=== PATIENT | male | born 1970 | race Caucasian/White ===

== ENCOUNTER 2018-08-18 11:55 | Outpatient (CLI) | payer SELFPAY | END 2018-08-18 11:56 | disposition critical access hospital (66) | LOC: EMS 11:55 | PROVIDERS: ATTEND Surgery | DX: R25.1 Tremor, unspecified (principal); R56.9 Unspecified convulsions; R11.2 Nausea with vomiting, unspecified | CPT/HCPCS: A0425; A0427 ==

== ENCOUNTER 2018-08-18 12:38 | Emergency (ER) | payer SELFPAY ==
[2018-08-18] MEDS ORDERED: PANTOPRAZOLE 40 MG VIAL IVP STA (12:56)
[2018-08-18] MEDS ORDERED: LORazepam 2 MG/ML VIAL IVP STA (12:56)
[2018-08-18] MEDS ORDERED: SODIUM CHLORIDE 0.9% 1,000 ML IV ONE (12:56)
[2018-08-18] MEDS ORDERED: chlordiazePOXIDE 25 MG CAPSULE PO STA (12:56)
[2018-08-18] MEDS ORDERED: ONDANSETRON 4 MG/2 ML VIAL IVP STA (12:56)
--- NOTE | 2018-08-18 13:00 | ED Physician Documentation ---
History of Present Illness - Stated complaint Stated Complaint: ETOH - Chief complaint Chief Complaint: General - History obtained from History obtained from: Patient - History of Present Illness Timing: Today Pain level max: 4 Pain level now: 4 Improved by: drinking etoh Worsened by: stopping drinking etoh - Additonal information Additional information: 48-year-old male who presents to the emergency department with alcohol withdrawal today. States last drink was 2 days ago. States he has gone through withdrawal before. Has been drinking a gallon of vodka a day for the past 10 days. States he was sober for a year prior to that. States that he thinks he may have had a seizure this morning. Is not having any hallucinations. Review of Systems Ten Systems: 10 systems reviewed and negative Constitutional: denies: Fever, Chills Nose: denies: Rhinorrhea / runny nose, Congestion Throat: denies: Sore throat Cardiac: denies: Chest pain / pressure Respiratory: denies: Cough GI: reports: Abdominal Pain (crampy), Nausea, Vomiting. denies: Diarrhea Skin: denies: Rash Musculoskeletal: denies: Neck pain, Back pain Neurologic: denies: Headache PD PAST MEDICAL HISTORY - Past Medical History Past Medical History: Yes Other Past Medical History: ETOH, splenic cyst - Past Surgical History Past Surgical History: Yes General: Splenectomy - Present Medications Home Medications: Ambulatory Orders Medication Instructions Recorded Confirmed Lorazepam [Ativan] 1 mg PO Q8H PRN #7 tablet 08/18/18 chlordiazePOXIDE [Librium] 25 - 50 mg PO Q6H PRN #30 capsule 08/18/18 - Allergies Allergies/Adverse Reactions: Allergies Allergy/AdvReac Type Severity Reaction Status Date / Time No Known Drug Allergies Allergy Verified 08/18/18 12:43 - Social History Does the pt smoke?: Yes Does the pt drink ETOH?: Yes ETOH Use: Liquor Does the pt have substance abuse?: No - Immunizations Immunizations are current?: Yes PD ED PE NORMAL - Vitals Vital signs reviewed: Yes - General General: Alert and oriented X 3, No acute distress, Well developed/nourished - HEENT HEENT: PERRL, Moist mucous membranes - Neck Neck: Supple, no meningeal sign - Cardiac Cardiac: Other (tachycardic) - Respiratory Respiratory: No respiratory distress, Clear bilaterally - Abdomen Abdomen: Soft, Non tender, Non distended - Derm Derm: Warm and dry, No rash - Extremities Extremities: No edema - Neuro Neuro: Alert and oriented X 3, electro mechanical designer 2-12 intact, No motor deficit, No sensory deficit - Psych Psych: Other (slightly tremulous) Results - Vitals Vitals: Vital Signs - 24 hr 08/18/18 08/18/18 08/18/18 12:39 13:07 14:07 Temperature 37 C Heart Rate 116 H 99 104 H Respiratory 18 24 18 Rate Blood Pressure 134/106 H 133/73 H 121/71 O2 Saturation 100 100 95 Oxygen O2 Source Room air - Labs Labs: Laboratory Tests 08/18/18 08/18/18 13:14 13:14 WBC 12.6 H RBC 5.13 Hgb 16.3 Hct 46.6 MCV 90.9 MCH 31.7 H MCHC 34.9 RDW 14.2 Plt Count 265 MPV 6.8 L Neut # (Auto) 9.7 H Lymph # (Auto) 2.1 [place] # (Auto) 0.7 Eos # (Auto) 0.0 Baso # (Auto) 0.1 Absolute Nucleated RBC 0.01 Nucleated RBC % 0.1 Sodium 132 L Potassium 3.1 L Chloride 94 L Carbon Dioxide 16 L Anion Gap 22.0 H BUN 14 Creatinine 0.9 Estimated GFR (MDRD) 90 Glucose 88 Calcium 8.4 L Total Bilirubin 1.7 H AST 62 H ALT 44 Alkaline Phosphatase 55 Total Protein 7.1 Albumin 4.3 Globulin 2.8 Albumin/Globulin Ratio 1.5 Lipase 26 Ethyl Alcohol 51.1 PD MEDICAL DECISION MAKING - ED course Complexity details: reviewed results, re-evaluated patient, considered differential, d/w patient, d/w [facility] [place] consultant ED course: Patient with alcohol withdrawal. Spoke with social work and he does not want inpatient detox or crisis detox. He will self refer in the morning. I will prescribe him a small amount of Librium and Ativan for home. We will have him follow-up closely with his doctor for further care. Patient has someone to stay with him at home. No hallucinations here. No seizures. Patient counseled regarding signs and symptoms for which I believe and urgent re-evaluation would be necessary. Patient with good understanding of and agreement to plan and is comfortable going home at this time This document was made in part using voice recognition software. While efforts are made to proofread this document, sound alike and grammatical errors may occur. Departure - Departure Disposition: 01 Home, Self Care Clinical Impression: Alcohol withdrawal Qualifiers: Complication of substance-induced condition: uncomplicated Qualified Code(s): F10.230 - Alcohol dependence with withdrawal, uncomplicated Condition: Stable Instructions: ED Withdrawal Alcohol Follow-Up: your,doctor in 3 days [Other] Prescriptions: chlordiazePOXIDE [Librium] 25 - 50 mg PO Q6H PRN #30 capsule PRN Reason: Alcohol Withdrawal Lorazepam [Ativan] 1 mg PO Q8H PRN #7 tablet PRN Reason: Alcohol Withdrawal Comments: You have declined inpatient treatment for alcohol withdrawal today. I still think it would be a good idea for you to follow-up as an outpatient and get herself into detox. Return if you worsen. Do not drink alcohol while taking the Ativan or Librium Discharge Date/Time: 08/18/18 14:21
[2018-08-18 13:20] LABS: BASOPHILS # (AUTO) 0.1 10^3/uL (0.0-0.1); EOSINOPHILS % (AUTO) 0.1 %; HGB - HEMOGLOBIN 16.3 g/dL (14.0-18.0); LYMPHOCYTES # (AUTO) 2.1 10^3/uL (1.5-3.5); LYMPHOCYTES % (AUTO) 16.8 %; MEAN CORPUSCULAR HEMOGLOBIN 31.7 pg (27.0-31.0); MEAN CORPUSCULAR HGB CONC 34.9 g/dL (32.0-36.0); MEAN CORPUSCULAR VOLUME 90.9 fL (80.0-94.0); MEAN PLATELET VOLUME 6.8 fL (7.4-11.4); MONOCYTES # (AUTO) 0.7 10^3/uL (0.0-1.0); MONOCYTES % (AUTO) 5.4 %; NEUTROPHILS # (AUTO) 9.7 10^3/uL (1.5-6.6); NEUTROPHILS % (AUTO) 76.7 %; PLT - PLATELET COUNT 265 10^3/uL (130-450); RED BLOOD COUNT 5.13 10^6/uL (4.70-6.10); RED CELL DISTRIBUTION WIDTH 14.2 % (12.0-15.0); WHITE BLOOD COUNT 12.6 x10^3/uL (4.8-10.8)
[2018-08-18 13:33] LABS: ALBUMIN 4.3 g/dL (3.2-5.5); ALBUMIN/GLOBULIN RATIO 1.5 (1.0-2.2); BILIRUBIN,TOTAL 1.7 mg/dL (0.2-1.0); CALCIUM 8.4 mg/dL (8.5-10.3); CREATININE 0.9 mg/dL (0.6-1.2); TOTAL PROTEIN 7.1 g/dL (6.7-8.2)
[2018-08-18 14:11] VITALS: BP 121/71
== END 2018-08-18 14:21 | disposition home or self-care (01) ==
LOC: ED 12:38
DX: F10.230 Alcohol dependence with withdrawal, uncomplicated (principal)
CPT/HCPCS: 36415; 80053; 80320; 83690; 85025; 96361; 96374; 96375; 99283; 99284; A9270; J2060

== ENCOUNTER 2019-07-12 14:54 | Outpatient (CLI) | payer SELFPAY | END 2019-07-12 14:55 | disposition critical access hospital (66) | LOC: EMS 14:54 | PROVIDERS: ATTEND Surgery | DX: R56.9 Unspecified convulsions (principal); R42 Dizziness and giddiness ==

== ENCOUNTER 2019-07-12 15:35 | Emergency (ER) | payer SELFPAY ==
--- NOTE | 2019-07-12 15:44 | ED Physician Documentation ---
PD HPI SEIZURE - Stated complaint Stated Complaint: SZ - Chief complaint Chief Complaint: Neuro - History obtained from History obtained from: Patient, EMS - History of Present Illness Timing - onset: Today (48yo gentleman quit drinking 2 days ago. He had been on a velásquez. He drinks around the clock. He had a seizure today. On the way and was treated with 5 mg of Versed and 100 mg this is the third time he is had a seizure, the other 2 were associated with alcohol withdrawal as well, the most recent seizure was 6 months ago. He was only sober for a few days then.) Review of Systems Ten Systems: 10 systems reviewed and negative Constitutional: reports: Fatigue. denies: Fever, Chills Cardiac: denies: Chest pain / pressure, Palpitations Respiratory: denies: Dyspnea PD PAST MEDICAL HISTORY - Past Surgical History Past Surgical History: Yes General: Splenectomy - Present Medications Home Medications: Ambulatory Orders Medication Instructions Recorded Confirmed Lorazepam [Ativan] 1 mg PO Q8H PRN #7 tablet 08/18/18 chlordiazePOXIDE [Librium] 25 - 50 mg PO Q6H PRN #30 capsule 08/18/18 chlordiazePOXIDE [Librium] 25 mg PO Q6H PRN #15 capsule 07/12/19 - Allergies Allergies/Adverse Reactions: Allergies Allergy/AdvReac Type Severity Reaction Status Date / Time No Known Drug Allergies Allergy Verified 08/18/18 12:43 - Social History Does the pt smoke?: Yes Does the pt drink ETOH?: Yes Does the pt have substance abuse?: No - Immunizations Immunizations are current?: Yes PD ED PE NORMAL - Vitals Vital signs reviewed: Yes - General General: Alert and oriented X 3 (Mildly tremulous, alert and oriented) - HEENT HEENT: PERRL, EOMI, Other (No icterus) - Neck Neck: Supple, no meningeal sign, No bony TTP - Cardiac Cardiac: RRR, No murmur - Respiratory Respiratory: No respiratory distress, Clear bilaterally - Abdomen Abdomen: Non tender - Derm Derm: No rash - Neuro Neuro: Alert and oriented X 3, Normal speech Results - Vitals Vitals: Vital Signs - 24 hr 07/12/19 15:37 Temperature 37 C Heart Rate 105 H Respiratory 18 Rate Blood Pressure 122/87 H O2 Saturation 98 Oxygen O2 Source Room air - Labs Labs: Laboratory Tests 07/12/19 07/12/19 07/12/19 15:45 15:45 15:45 WBC 7.8 RBC 4.81 Hgb 15.6 Hct 43.1 MCV 89.6 MCH 32.4 H MCHC 36.2 H RDW 13.8 Plt Count 158 MPV 10.0 Neut # (Auto) 6.1 Lymph # (Auto) 1.0 L [place] # (Auto) 0.6 Eos # (Auto) 0.0 Baso # (Auto) 0.0 Absolute Nucleated RBC 0.00 Nucleated RBC % 0.0 PT 12.1 INR 1.1 Sodium 136 Potassium 3.4 L Chloride 96 L Carbon Dioxide 23 Anion Gap 17.0 H BUN 8 Creatinine 0.9 Estimated GFR (MDRD) 90 Glucose 157 H Calcium 9.3 Total Bilirubin 1.4 H AST 102 H ALT 51 Alkaline Phosphatase 50 Total Protein 6.7 Albumin 4.1 Globulin 2.6 Albumin/Globulin Ratio 1.6 Lipase 61 H Ethyl Alcohol < 5.0 PD MEDICAL DECISION MAKING - ED course ED course: 48-year-old gentleman presents with alcohol withdrawal seizure. It was too late in the day for the public health social worker to talk to him. He was given crisis resources by me. And the option of inpatient treatment which he declined and would like to go home with a Librium prescription. Given the late hour on the weekend he was given 2 mg of Ativan to go for the evening. Departure - Departure Disposition: 01 Home, Self Care Clinical Impression: Seizure Alcohol withdrawal Qualifiers: Complication of substance-induced condition: uncomplicated Qualified Code(s): F10.230 - Alcohol dependence with withdrawal, uncomplicated Condition: Good Record reviewed to determine appropriate education?: Yes Instructions: ED Seizure Alcohol Withdrawal, ED Withdrawal Alcohol Prescriptions: chlordiazePOXIDE [Librium] 25 mg PO Q6H PRN #15 capsule PRN Reason: withdrawl
[2019-07-12 15:49] LABS: BASOPHILS % (AUTO) 0.5 %; EOSINOPHILS % (AUTO) 0.4 %; HGB - HEMOGLOBIN 15.6 g/dL (14.0-18.0); LYMPHOCYTES % (AUTO) 12.3 %; MEAN CORPUSCULAR HEMOGLOBIN 32.4 pg (27.0-31.0); MEAN CORPUSCULAR HGB CONC 36.2 g/dL (32.0-36.0); MEAN CORPUSCULAR VOLUME 89.6 fL (80.0-94.0); MONOCYTES # (AUTO) 0.6 10^3/uL (0.0-1.0); MONOCYTES % (AUTO) 7.8 %; NEUTROPHILS # (AUTO) 6.1 10^3/uL (1.5-6.6); NEUTROPHILS % (AUTO) 78.6 %; PLT - PLATELET COUNT 158 10^3/uL (130-450); RED BLOOD COUNT 4.81 10^6/uL (4.70-6.10); RED CELL DISTRIBUTION WIDTH 13.8 % (12.0-15.0); WHITE BLOOD COUNT 7.8 x10^3/uL (4.8-10.8)
[2019-07-12] MEDS: LORazepam 1 MG TABLET PO STA (15:53)
[2019-07-12 15:54] LABS: INR 1.1 (0.8-1.2); PT - PROTHROMBIN TIME 12.1 secs (9.9-12.6)
[2019-07-12 16:02] LABS: ALBUMIN 4.1 g/dL (3.2-5.5); ALBUMIN/GLOBULIN RATIO 1.6 (1.0-2.2); ALKALINE PHOSPHATASE 50 IU/L (42-121); ALT ALANINE AMINOTRANSFERASE 51 IU/L (10-60); AST ASPARTATE AMINOTRANSFERASE 102 IU/L (10-42); BILIRUBIN,TOTAL 1.4 mg/dL (0.2-1.0); BUN - BLOOD UREA NITROGEN 8 mg/dL (6-20); CALCIUM 9.3 mg/dL (8.5-10.3); CARBON DIOXIDE - CO2 23 mmol/L (21-32); CHLORIDE 96 mmol/L (101-111); CREATININE 0.9 mg/dL (0.6-1.2); GFR - MDRD 90 (>89); GLUCOSE 157 mg/dL (70-100); LIPASE 61 U/L (22-51); SODIUM 136 mmol/L (135-145); TOTAL PROTEIN 6.7 g/dL (6.7-8.2)
[2019-07-12] MEDS ORDERED: LORazepam 1 MG TABLET PO STA (17:02)
[2019-07-12 17:34] VITALS: BP 118/85
== END 2019-07-12 17:34 | disposition home or self-care (01) ==
LOC: EDUNIT# → ED 15:35
DX: R56.9 Unspecified convulsions (principal); F10.230 Alcohol dependence with withdrawal, uncomplicated
CPT/HCPCS: 36415; 80053; 80320; 83690; 85025; 85610; 99283; 99284; J8499

== ENCOUNTER 2019-09-21 08:44 | Emergency (ER) | payer SELFPAY ==
[2019-09-21] MEDS ORDERED: LORazepam 2 MG/ML VIAL IVP STA ×3 (09:32→11:29)
[2019-09-21] MEDS ORDERED: FOLIC ACID INJ 1 MG, THIAMINE INJ 100 MG, MAGNESIUM SULFATE 2 GM, MULTIVITAMIN 10 ML in... IV STA ×5 (09:33)
--- NOTE | 2019-09-21 09:34 | ED Physician Documentation ---
History of Present Illness - Stated complaint Stated Complaint: DETOXING - Chief complaint Chief Complaint: MHE - History obtained from History obtained from: Patient, Friend - History of Present Illness Timing: Today - Additonal information Additional information: 49-year-old alcoholic male who has had alcohol withdrawal seizure 7 times previously is withdrawing from alcohol and would like some assistance. He drinks heavily when he drinks and he has been drinking for the past 15 days straight 10-20 drinks per day. He discontinued use of alcohol yesterday morning he has been about 24 hours without alcohol. He is feeling like he is about ready to have a seizure his hands were cramped up and he feels poorly. PD PAST MEDICAL HISTORY - Past Surgical History Past Surgical History: Yes General: Splenectomy - Present Medications Home Medications: Ambulatory Orders Medication Instructions Recorded Confirmed Lorazepam [Ativan] 1 mg PO Q8H PRN #7 tablet 08/18/18 chlordiazePOXIDE [Librium] 25 - 50 mg PO Q6H PRN #30 capsule 08/18/18 chlordiazePOXIDE [Librium] 25 mg PO Q6H PRN #15 capsule 07/12/19 chlordiazePOXIDE [Librium] 25 - 50 mg PO Q6H PRN #30 capsule 09/21/19 - Allergies Allergies/Adverse Reactions: Allergies Allergy/AdvReac Type Severity Reaction Status Date / Time No Known Drug Allergies Allergy Verified 08/18/18 12:43 - Social History Does the pt smoke?: Yes Smoking Status: Current every day smoker Does the pt drink ETOH?: Yes Does the pt have substance abuse?: No - Immunizations Immunizations are current?: Yes PD ED PE NORMAL - Vitals Vital signs reviewed: Yes - General General: Alert and oriented X 3, Well developed/nourished, Other (The patient is in distress with carpal pedal spams and grunting respirations. He is able to converse but is distracted by the energy required by the carpal spasms. ) - HEENT HEENT: Atraumatic, PERRL, EOMI - Neck Neck: Supple, no meningeal sign, No bony TTP - Cardiac Cardiac: No murmur, Other (tachy to 110) - Respiratory Respiratory: No respiratory distress, Clear bilaterally - Abdomen Abdomen: Normal bowel sounds, Soft, Non tender, Non distended, No organomegaly - Back Back: No CVA TTP, No spinal TTP - Derm Derm: Normal color, Warm and dry, No rash - Extremities Extremities: No deformity, No edema - Neuro Neuro: Alert and oriented X 3, yeast tender 2-12 intact, No motor deficit, No sensory deficit, Normal speech Eye Opening: Spontaneous Motor: Obeys Commands Verbal: Oriented GCS Score: 15 - Psych Psych: Normal mood, Normal affect Results - Vitals Vitals: Vital Signs - 24 hr 09/21/19 09/21/19 09/21/19 09:00 09:23 10:15 Temperature 36.5 C Heart Rate 108 H 97 100 Respiratory 18 18 16 Rate Blood Pressure 152/99 H 144/86 H 142/99 H O2 Saturation 100 100 86 L 09/21/19 09/21/19 09/21/19 10:16 10:20 10:21 Temperature Heart Rate Respiratory Rate Blood Pressure O2 Saturation 96 89 L 95 Oxygen O2 Source Nasal cannula - Labs Labs: Laboratory Tests 09/21/19 09/21/19 09/21/19 09:05 09:05 09:05 WBC 11.0 H RBC 5.63 Hgb 17.9 Hct 50.5 MCV 89.7 MCH 31.8 H MCHC 35.4 RDW 14.1 Plt Count 310 MPV 8.8 Neut # (Auto) 5.1 Lymph # (Auto) 4.8 H [place] # (Auto) 0.9 Eos # (Auto) 0.1 Baso # (Auto) 0.1 Absolute Nucleated RBC 0.00 Nucleated RBC % 0.0 PT 10.7 INR 0.9 Sodium 140 Potassium 3.8 Chloride 99 L Carbon Dioxide 21 Anion Gap 20.0 H BUN 12 Creatinine 0.9 Estimated GFR (MDRD) 90 Glucose 104 H Calcium 8.9 Total Bilirubin 1.4 H AST 72 H ALT 44 Alkaline Phosphatase 47 Total Protein 7.6 Albumin 4.6 Globulin 3.0 Albumin/Globulin Ratio 1.5 Lipase 29 Ethyl Alcohol 204.7 PD MEDICAL DECISION MAKING - ED course Complexity details: reviewed old records, reviewed results, re-evaluated patient, considered differential, d/w patient, d/w family ED course: 49-year-old alcoholic male with alcohol withdrawal seizures comes into the emergency department today in the early stages of withdrawal very shaky and tachycardic and feeling like he might have a seizure with BA of 200. He is administered Ativan 2 mg intravenously and requires a second 2 mg intravenously. He has much improvement following that and he does talk to the social media developer he is not interested in going for inpatient detoxification which is what I have recommended to him. He states that previously the Librium has worked well for him and here in the emergency department we have given him a third dose of Ativan prior to discharge with a prescription for Librium. Departure - Departure Disposition: 01 Home, Self Care Clinical Impression: Alcohol withdrawal Qualifiers: Complication of substance-induced condition: with unspecified complication Qualified Code(s): F10.239 - Alcohol dependence with withdrawal, unspecified Condition: Stable Instructions: ED Withdrawal Alcohol, ED Seizure Alcohol Withdrawal Follow-Up: [facility] [Provider Group] Prescriptions: chlordiazePOXIDE [Librium] 25 - 50 mg PO Q6H PRN #30 capsule PRN Reason: withdrawal symptoms
[2019-09-21] MEDS ORDERED: DEXAMETHASONE 10 MG/ML VIAL IVP STA (09:46)
[2019-09-21 09:55] LABS: BASOPHILS # (AUTO) 0.1 10^3/uL (0.0-0.1); BASOPHILS % (AUTO) 1.2 %; EOSINOPHILS # (AUTO) 0.1 10^3/uL (0.0-0.7); EOSINOPHILS % (AUTO) 1.2 %; HGB - HEMOGLOBIN 17.9 g/dL (14.0-18.0); LYMPHOCYTES # (AUTO) 4.8 10^3/uL (1.5-3.5); LYMPHOCYTES % (AUTO) 43.5 %; MEAN CORPUSCULAR HEMOGLOBIN 31.8 pg (27.0-31.0); MEAN CORPUSCULAR HGB CONC 35.4 g/dL (32.0-36.0); MEAN CORPUSCULAR VOLUME 89.7 fL (80.0-94.0); MEAN PLATELET VOLUME 8.8 fL (7.4-11.4); MONOCYTES # (AUTO) 0.9 10^3/uL (0.0-1.0); MONOCYTES % (AUTO) 7.8 %; NEUTROPHILS # (AUTO) 5.1 10^3/uL (1.5-6.6); PLT - PLATELET COUNT 310 10^3/uL (130-450); RED BLOOD COUNT 5.63 10^6/uL (4.70-6.10); RED CELL DISTRIBUTION WIDTH 14.1 % (12.0-15.0)
[2019-09-21 10:09] LABS: ALBUMIN 4.6 g/dL (3.2-5.5); ALBUMIN/GLOBULIN RATIO 1.5 (1.0-2.2); BILIRUBIN,TOTAL 1.4 mg/dL (0.2-1.0); CALCIUM 8.9 mg/dL (8.5-10.3); CREATININE 0.9 mg/dL (0.6-1.2); TOTAL PROTEIN 7.6 g/dL (6.7-8.2)
[2019-09-21 10:11] LABS: INR 0.9 (0.8-1.2); PT - PROTHROMBIN TIME 10.7 secs (9.9-12.6)
[2019-09-21 11:46] VITALS: BP 142/98
== END 2019-09-21 11:45 | disposition home or self-care (01) ==
LOC: ED 08:44
DX: F10.239 Alcohol dependence with withdrawal, unspecified (principal); F17.200 Nicotine dependence, unspecified, uncomplicated
CPT/HCPCS: 36415; 80053; 80320; 83690; 85025; 85610; 96365; 96375; 96376; 99281; 99284; J2060; J3411

== ENCOUNTER 2019-12-22 12:47 | Emergency (ER) | payer SELFPAY ==
[2019-12-22] MEDS ORDERED: LORazepam 2 MG/ML VIAL IVP STA (13:08)
[2019-12-22] MEDS ORDERED: THIAMINE INJ 100 MG in SODIUM CHLORIDE 0.9% 50 ML IV STA (13:08)
[2019-12-22] MEDS ORDERED: SODIUM CHLORIDE 0.9% 1,000 ML IV ONE (13:08)
--- NOTE | 2019-12-22 13:10 | ED Physician Documentation ---
PD HPI SEIZURE - Stated complaint Stated Complaint: SEIZURE SYMPTOMS - Chief complaint Chief Complaint: Neuro - History obtained from History obtained from: Patient (This is a chronic alcoholic who had his last drink 35 hours ago and he is feeling very shaky and had a seizure prior to arrival without injury or incontinence. He has been on 45-day velásquez. He declines to talk to the forensic social worker. Plans to go home to [place] within a couple of weeks to seek detox options there.) Review of Systems Constitutional: denies: Fever, Chills Cardiac: denies: Chest pain / pressure, Palpitations Respiratory: denies: Dyspnea, Cough PD PAST MEDICAL HISTORY - Past Surgical History Past Surgical History: Yes General: Splenectomy - Present Medications Home Medications: Ambulatory Orders Medication Instructions Recorded Confirmed Lorazepam [Ativan] 1 mg PO TID PRN #15 tablet 12/22/19 - Allergies Allergies/Adverse Reactions: Allergies Allergy/AdvReac Type Severity Reaction Status Date / Time No Known Drug Allergies Allergy Verified 12/22/19 13:03 - Social History Does the pt smoke?: Yes Smoking Status: Current every day smoker Does the pt drink ETOH?: Yes Does the pt have substance abuse?: No - Immunizations Immunizations are current?: Yes PD ED PE NORMAL - Vitals Vital signs reviewed: Yes - General General: Alert and oriented X 3, Other (He is quite shaky, a coarse tremor mostly in the right upper extremity. He is alert and oriented. He does not have any tongue tremulousness.) - HEENT HEENT: PERRL, EOMI - Neck Neck: Supple, no meningeal sign, No bony TTP - Neuro Neuro: Alert and oriented X 3, No motor deficit, No sensory deficit, Normal speech Results - Vitals Vitals: Vital Signs - 24 hr 12/22/19 12/22/19 12/22/19 12:50 13:27 13:44 Temperature 36.7 C Heart Rate 125 H 107 H 94 Respiratory 24 22 14 Rate Blood Pressure 142/94 H 147/104 H 164/89 H O2 Saturation 96 97 94 12/22/19 12/22/19 12/22/19 14:19 14:59 16:00 Temperature Heart Rate 105 H 103 H 102 H Respiratory 16 16 18 Rate Blood Pressure 151/92 H 143/81 H 133/80 H O2 Saturation 93 93 96 Oxygen O2 Source Room air - Labs Labs: Laboratory Tests 12/22/19 13:14 Sodium 134 L Potassium 3.3 L Chloride 90 L Carbon Dioxide 23 Anion Gap 21.0 H BUN 13 Creatinine 0.8 Estimated GFR (MDRD) 103 Glucose 115 H Calcium 10.6 H Total Bilirubin 1.5 H AST 169 H ALT 99 H Alkaline Phosphatase 58 Total Protein 8.1 Albumin 5.0 Globulin 3.1 Albumin/Globulin Ratio 1.6 Lipase 54 H Ethyl Alcohol 228.2 PD MEDICAL DECISION MAKING - ED course ED course: This is a 49-year-old gentleman who presents with symptoms of alcohol withdra wal, that said there are some inconsistencies, he has no tongue tremor or fasciculation which is inconsistent with withdrawal. He is a little pushy about Ativan. He said he had not drank in 35 hours, this is inconsistent with his blood alcohol level. As such I do not think he is trustworthy to go home with a prescription for benzodiazepines. However after I had this discussion with him he did acquiesce to talking to the forensic social worker. And a social work consult was ordered. He was agreeable to go to a detox center and a prescription for Ativan was written with specific instructions on it that it should only be filled by crisis center staff and not dispensed to him when he goes home because of the above issues. Departure - Departure Disposition: 01 Home, Self Care Clinical Impression: Alcohol intoxication Qualifiers: Complication of substance-induced condition: uncomplicated Qualified Code(s): F10.920 - Alcohol use, unspecified with intoxication, uncomplicated Condition: Good Record reviewed to determine appropriate education?: Yes Instructions: ED Alcohol Intoxication Prescriptions: Lorazepam [Ativan] 1 mg PO TID PRN #15 tablet PRN Reason: Anxiety Comments: Unfortunately today you lied to me, you said you had not drank in 35 hours, this is inconsistent with your blood alcohol level which is quite positive. Also there are some inconsistencies in your appearance that are not consistent with alcohol withdrawal. Since it is dangerous to take benzodiazepines such as lorazepam or Librium along with alcohol, I do not feel the benefit of prescribing you these is worth the risk to you at this point. Return if you would like to talk to the forensic social worker about inpatient detox. Discharge Date/Time: 12/22/19 16:35
[2019-12-22 13:36] LABS: ALBUMIN/GLOBULIN RATIO 1.6 (1.0-2.2); BILIRUBIN,TOTAL 1.5 mg/dL (0.2-1.0); CALCIUM 10.6 mg/dL (8.5-10.3); CREATININE 0.8 mg/dL (0.6-1.2); TOTAL PROTEIN 8.1 g/dL (6.7-8.2)
[2019-12-22] MEDS ORDERED: POTASSIUM CHLORIDE 20 MEQ TABLET PO STA (13:40)
[2019-12-22 16:25] VITALS: BP 133/80
== END 2019-12-22 16:35 | disposition home or self-care (01) ==
LOC: ED 12:47
DX: F10.120 Alcohol abuse with intoxication, uncomplicated (principal); F17.200 Nicotine dependence, unspecified, uncomplicated
CPT/HCPCS: 36415; 80053; 80320; 83690; 96365; 96375; 99283; 99284; A9270; J2060; J3411; J7040

== ENCOUNTER 2022-03-27 15:04 | Outpatient (CLI) | payer MEDICAID | END 2022-03-27 15:05 | disposition critical access hospital (66) | LOC: EMS 15:04 | DX: R42 Dizziness and giddiness (principal); R23.2 Flushing; R00.0 Tachycardia, unspecified; Z72.89 Other problems related to lifestyle | CPT/HCPCS: A0425; A0427; A0999 ==

== ENCOUNTER 2022-03-27 15:42 | Emergency (ER) | payer MEDICAID ==
[2022-03-27] MEDS ORDERED: THIAMINE INJ 100 MG, MAGNESIUM SULFATE 2 GM, MULTIVITAMIN 10 ML, FOLIC ACID INJ 1 MG in... IV ONE ×5 (16:06)
--- NOTE | 2022-03-27 16:10 | ED Physician Documentation ---
History of Present Illness - Stated complaint Stated Complaint: ETOH - Chief complaint Chief Complaint: Neuro - History obtained from History obtained from: Patient, EMS - History of Present Illness Timing: Today Pain level max: 0 Pain level now: 0 - Additonal information Additional information: 51 year old male, states history of alcoholism. States drinking heavily x 3 days. He states that he thinks his last drink was this morning but is unsure. He states that he feels "shaky". He states that he thinks he had a seizure from alcohol withdrawal once but states that he has never had a seizure at home when he is withdrawing. He does not want to go to inpatient detox. He does not want any help with detoxing. Patient states that he had been sober for 2 months, but started drinking again 3 days ago. Last alcohol intake was early this morning Review of Systems Ten Systems: 10 systems reviewed and negative Constitutional: denies: Fever Nose: denies: Rhinorrhea / runny nose, Congestion Respiratory: denies: Cough GI: denies: Abdominal Pain, Nausea, Vomiting, Diarrhea Skin: denies: Rash Musculoskeletal: denies: Neck pain, Back pain Neurologic: reports: Head injury (He states that he did hit his head 2 days ago when he was drinking. Has a small amount of bruising above the left eye.). denies: Generalized weakness, Focal weakness, Seizure, Confused PD PAST MEDICAL HISTORY - Past Medical History Past Medical History: Yes Other Past Medical History: Alcoholism - Past Surgical History Past Surgical History: Yes General: Splenectomy - Present Medications Home Medications: Ambulatory Orders Medication Instructions Recorded Confirmed chlordiazePOXIDE [Librium] 50 mg PO Q6H #30 cap 03/27/22 - Allergies Allergies/Adverse Reactions: Allergies Allergy/AdvReac Type Severity Reaction Status Date / Time No Known Drug Allergies Allergy Verified 12/22/19 13:03 - Living Situation Living Arrangement: reports: At home - Social History Does the pt smoke?: Yes Smoking Status: Current every day smoker Does the pt drink ETOH?: Yes Does the pt have substance abuse?: No - Family History Family history: reports: Non contributory - Immunizations Immunizations are current?: Yes PD ED PE NORMAL - Vitals Vital signs reviewed: Yes - General General: Alert and oriented X 3, No acute distress - HEENT HEENT: PERRL, Ears normal, Moist mucous membranes, Other (L eye - periorbital ecchymosis. ) - Neck Neck: Supple, no meningeal sign - Cardiac Cardiac: RRR, Strong equal pulses - Respiratory Respiratory: No respiratory distress - Abdomen Abdomen: Soft, Non tender, Non distended - Back Back: No spinal TTP - Derm Derm: Warm and dry - Extremities Extremities: No edema, No calf tenderness / cord - Neuro Neuro: Alert and oriented X 3, seater grinder 2-12 intact, No motor deficit, No sensory deficit, Normal speech Eye Opening: Spontaneous Motor: Obeys Commands Verbal: Oriented GCS Score: 15 - Psych Psych: Normal mood, Normal affect Results - Vitals Vitals: Vital Signs - 24 hr 03/27/22 03/27/22 03/27/22 15:49 15:52 17:52 Temperature 37.7 C Heart Rate 99 56 L 90 Respiratory 17 13 13 Rate Blood Pressure 152/102 H 109/76 136/95 H O2 Saturation 97 97 99 03/27/22 03/27/22 03/27/22 19:00 19:42 19:51 Temperature 37.5 C 36.5 C Heart Rate 84 82 99 Respiratory 14 15 18 Rate Blood Pressure 138/114 H 136/91 H 147/86 H O2 Saturation 99 98 100 Oxygen O2 Source Room air - Labs Labs: Laboratory Tests 03/27/22 03/27/22 03/27/22 16:10 16:10 16:10 WBC 7.7 RBC 4.81 Hgb 15.5 Hct 42.4 MCV 88.1 MCH 32.2 H MCHC 36.6 H RDW 15.1 H Plt Count 214 MPV 10.4 Neut # (Auto) 5.8 Lymph # (Auto) 0.5 L [place] # (Auto) 1.4 H Eos # (Auto) 0.0 Baso # (Auto) 0.1 Absolute Nucleated RBC 0.25 Nucleated RBC % 3.2 PT INR APTT Sodium 132 L Potassium 3.7 Chloride 91 L Carbon Dioxide 25 Anion Gap 16.0 H BUN 15 Creatinine 0.8 Estimated GFR (MDRD) 102 Glucose 119 H Calcium 10.3 Total Bilirubin 1.6 H AST 110 H ALT 133 H Alkaline Phosphatase 119 Total Protein 7.3 Albumin 4.4 Globulin 2.9 Albumin/Globulin Ratio 1.5 Lipase 75 H TSH 1.21 Urine Color Urine Clarity Urine pH Ur Specific [place] Urine Protein Urine Glucose (UA) Urine Ketones Urine Occult Blood Urine Nitrite Urine Bilirubin Urine Urobilinogen Ur Leukocyte Esterase Urine RBC Urine WBC Ur Squamous Epith Cells Urine Bacteria Urine Mucus Ur Microscopic Review Urine Culture Comments Salicylates < 6.0 Urine Opiates Screen Ur Oxycodone Screen Urine Methadone Screen Ur Propoxyphene Screen Acetaminophen < 10 L Ur Barbiturates Screen Ur Tricyclics Screen Ur Phencyclidine Scrn Ur Amphetamine Screen U Methamphetamines Scrn U Benzodiazepines Scrn Urine Cocaine Screen U Cannabinoids Screen Ethyl Alcohol < 5.0 03/27/22 03/27/22 16:10 17:15 WBC RBC Hgb Hct MCV MCH MCHC RDW Plt Count MPV Neut # (Auto) Lymph # (Auto) [place] # (Auto) Eos # (Auto) Baso # (Auto) Absolute Nucleated RBC Nucleated RBC % PT 12.2 INR 1.1 APTT 25.0 Sodium Potassium Chloride Carbon Dioxide Anion Gap BUN Creatinine Estimated GFR (MDRD) Glucose Calcium Total Bilirubin AST ALT Alkaline Phosphatase Total Protein Albumin Globulin Albumin/Globulin Ratio Lipase TSH Urine Color DARK YELLOW Urine Clarity CLEAR Urine pH 6.0 Ur Specific [place] 1.020 Urine Protein 30 H Urine Glucose (UA) NEGATIVE Urine Ketones 15 H Urine Occult Blood NEGATIVE Urine Nitrite POSITIVE H Urine Bilirubin NEGATIVE Urine Urobilinogen >=8.0 H Ur Leukocyte Esterase NEGATIVE Urine RBC 0-5 Urine WBC 0-3 Ur Squamous Epith Cells RARE Squamous Urine Bacteria Rare Urine Mucus Few Strands Ur Microscopic Review INDICATED Urine Culture Comments INDICATED Salicylates Urine Opiates Screen NEGATIVE Ur Oxycodone Screen NEGATIVE Urine Methadone Screen NEGATIVE Ur Propoxyphene Screen NEGATIVE Acetaminophen Ur Barbiturates Screen NEGATIVE Ur Tricyclics Screen NEGATIVE Ur Phencyclidine Scrn NEGATIVE Ur Amphetamine Screen NEGATIVE U Methamphetamines Scrn NEGATIVE U Benzodiazepines Scrn NEGATIVE Urine Cocaine Screen NEGATIVE U Cannabinoids Screen NEGATIVE Ethyl Alcohol - Rads (name of study) Head CT Radiology: Final report received, EMP read contemporaneously, See rad report (No acute abnormality) PD MEDICAL DECISION MAKING - ED course Complexity details: reviewed results, re-evaluated patient, considered differential, d/w patient ED course: 51-year-old male here with alcohol withdrawal. He was given Librium and a banana bag. Feels better. Also given IV fluids. No longer tachycardic or shaky. He is alert and oriented x3. He does not want to go to detox. He is not suicidal or homicidal. Ambulating without difficulty. We will prescribe a small amount of Librium for home. [place] sister will help take care of him. Patient informed that he is welcome to return if he would like assistance in finding a detox facility. Patient counseled regarding signs and symptoms for which I believe and urgent re-evaluation would be necessary. Patient with good understanding of and agreement to plan and is comfortable going home at this time This document was made in part using voice recognition software. While efforts are made to proofread this document, sound alike and grammatical errors may occur. Departure - Departure Disposition: Home, Self Care Clinical Impression: Alcohol withdrawal Qualifiers: Complication of substance-induced condition: uncomplicated Qualified Code(s): F10.930 - Alcohol use, unspecified with withdrawal, uncomplicated Condition: Good Instructions: ED Withdrawal Alcohol Follow-Up: your,doctor in 1 week [Other] Prescriptions: chlordiazePOXIDE [Librium] 50 mg PO Q6H #30 cap Comments: Your prescriptions were sent to [facility] in [place]. Please follow-up with your doctor for further care. You can contact [facility] if you change your mind about detox. Contact: [facility] [address] [place] [id number] Fax: Discharge Date/Time: 03/27/22 19:51
[2022-03-27 16:38] LABS: ACETAMINOPHEN < 10 ug/mL (10-30); ALBUMIN 4.4 g/dL (3.2-5.5); ALBUMIN/GLOBULIN RATIO 1.5 (1.0-2.2); ALKALINE PHOSPHATASE 119 IU/L (42-121); ALT ALANINE AMINOTRANSFERASE 133 IU/L (10-60); AST ASPARTATE AMINOTRANSFERASE 110 IU/L (10-42); BASOPHILS # (AUTO) 0.1 10^3/uL (0.0-0.1); BASOPHILS % (AUTO) 0.6 %; BILIRUBIN,TOTAL 1.6 mg/dL (0.2-1.0); BUN - BLOOD UREA NITROGEN 15 mg/dL (6-20); CALCIUM 10.3 mg/dL (8.5-10.3); CARBON DIOXIDE - CO2 25 mmol/L (21-32); CHLORIDE 91 mmol/L (101-111); CREATININE 0.8 mg/dL (0.6-1.2); EOSINOPHILS % (AUTO) 0.1 %; ETOH - ETHANOL < 5.0 mg/dL; GFR - MDRD 102 (>89); GLUCOSE 119 mg/dL (70-100); HCT - HEMATOCRIT 42.4 % (42.0-52.0); HGB - HEMOGLOBIN 15.5 g/dL (14.0-18.0); LIPASE 75 U/L (22-51); LYMPHOCYTES # (AUTO) 0.5 10^3/uL (1.5-3.5); LYMPHOCYTES % (AUTO) 6.3 %; MEAN CORPUSCULAR HEMOGLOBIN 32.2 pg (27.0-31.0); MEAN CORPUSCULAR VOLUME 88.1 fL (80.0-94.0); MEAN PLATELET VOLUME 10.4 fL (7.4-11.4); MONOCYTES # (AUTO) 1.4 10^3/uL (0.0-1.0); MONOCYTES % (AUTO) 17.6 %; NEUTROPHILS # (AUTO) 5.8 10^3/uL (1.5-6.6); NEUTROPHILS % (AUTO) 74.9 %; NRBC ABSOLUTE COUNT (AUTO) 0.25 x10^3/uL; NUCLEATED RED BLOOD CELLS AUTO 3.2 /100WBC; PLT - PLATELET COUNT 214 10^3/uL (130-450); POTASSIUM 3.7 mmol/L (3.5-5.0); RED BLOOD COUNT 4.81 10^6/uL (4.70-6.10); RED CELL DISTRIBUTION WIDTH 15.1 % (12.0-15.0); SALICYLATE < 6.0 mg/dL; SODIUM 132 mmol/L (135-145); TOTAL PROTEIN 7.3 g/dL (6.7-8.2); WHITE BLOOD COUNT 7.7 x10^3/uL (4.8-10.8)
[2022-03-27 16:41] LABS: INR 1.1 (0.8-1.2); PT - PROTHROMBIN TIME 12.2 secs (9.9-12.6)
[2022-03-27 16:43] LABS: MEAN CORPUSCULAR HGB CONC 36.6 g/dL (32.0-36.0)
[2022-03-27] MEDS ORDERED: chlordiazePOXIDE 25 MG CAPSULE PO STA (16:45)
[2022-03-27 17:52] LABS: MUDS CUTOFF CONCENTRATIONS CUTOFF CONC BELOW:
[2022-03-27 17:54] LABS: GLUCOSE, URINE (UA) NEGATIVE (NEGATIVE); KETONES,URINE (UA) 15 mg/dL (NEGATIVE); LEUKOCYTE ESTERASE, URINE NEGATIVE (NEGATIVE); NITRITE,URINE POSITIVE (NEGATIVE); OCCULT BLOOD,URINE NEGATIVE (NEGATIVE); PROTEIN,URINE 30 mg/dL (NEGATIVE); UROBILINOGEN,URINE >=8.0 E.U./dL (NORMAL)
[2022-03-27 18:07] LABS: AMPHETAMINE SCREEN,URINE NEGATIVE (NEGATIVE); BARBITURATE SCREEN,UR NEGATIVE (NEGATIVE); BENZODIAZEPINES SCREEN, URINE NEGATIVE (NEGATIVE); BILIRUBIN,URINE NEGATIVE (NEGATIVE); CLARITY,URINE CLEAR (CLEAR); COCAINE SCREEN URINE NEGATIVE (NEGATIVE); ICTOTEST,URINE NEGATIVE; METHADONE SCREEN, URINE NEGATIVE (NEGATIVE); METHAMPHETAMINES SCREEN, URINE NEGATIVE (NEGATIVE); OPIATE SCREEN, URINE NEGATIVE (NEGATIVE); OXYCODONE SCREEN, URINE NEGATIVE (NEGATIVE); PROPOXYPHENE SCREEN, URINE NEGATIVE (NEGATIVE); THC CANNABINOID SCREEN, URINE NEGATIVE (NEGATIVE); TRICYCLIC ANTIDEPRESSANT,URINE NEGATIVE (NEGATIVE)
[2022-03-27 18:11] LABS: WBC,URINE 0-3 /HPF (0-3)
[2022-03-27 18:12] LABS: BACTERIA,URINE Rare /HPF (None Seen); MUCUS,URINE Few Strands; RBC,URINE 0-5 /HPF (0-5); SQUAMOUS EPITHELIAL CELL,UR RARE Squamous (<= Few)
[2022-03-27] MEDS ORDERED: SODIUM CHLORIDE 0.9% 1,000 ML IV STA (18:38)
--- NOTE | 2022-03-27 19:01 | CT Report ---
PROCEDURE: HEAD WO INDICATIONS: fall, head injury TECHNIQUE: Noncontrast 4.5 mm thick angled axial sections acquired from the foramen magnum to the vertex. For r adiation dose reduction, the following was used: automated exposure control, adjustment of mA and/or kV according to patient size. COMPARISON: None. FINDINGS: Image quality: Excellent. CSF spaces: Basal cisterns are patent. No extra-axial fluid collections. Ventricles are normal in size and shape. Brain: No midline shift. No intracranial masses or hemorrhage. Eastman-white matter interface is norm al. Skull and face: Calvarium and visualized facial bones are intact, without suspicious lesions. Sinuses: Visualized sinuses and mastoids are clear. IMPRESSION: No acute intracranial abnormality. Reviewed by: Arvind Franco MD on 03/27/2022 7:00 PM PDT Approved by: Arvind Franco MD on 03/27/2022 7:00 PM PDT Station ID: [id number]
[2022-03-27 19:52] VITALS: BP 147/86
== END 2022-03-27 19:51 | disposition home or self-care (01) ==
LOC: EDUNIT# → ED 15:42
DX: F10.930 Alcohol use, unspecified with withdrawal, uncomplicated (principal); F17.200 Nicotine dependence, unspecified, uncomplicated
CPT/HCPCS: 36415; 70450; 80053; 80306; 80307; 80320; 80329; 81001; 83690; 84443; 85025; 85610; 85730; 87086; 96365; 99282; 99284; A9270; J3411; 81003

== ENCOUNTER 2022-05-28 13:30 | Outpatient (CLI) | payer MEDICAID | END 2022-05-28 13:31 | disposition short-term general hospital (02) | LOC: EMS 13:30 | DX: M54.50 Low back pain, unspecified (principal); M25.551 Pain in right hip; M25.552 Pain in left hip; M79.605 Pain in left leg; M79.604 Pain in right leg; V58.5XXA Driver of pick-up truck or van injured in noncollision transport accident in traffic accident, initial encounter; Y92.414 Local residential or business street as the place of occurrence of the external cause | CPT/HCPCS: A0425; A0427; A0999 ==

== ENCOUNTER 2022-07-31 10:07 | Outpatient (CLI) | payer MEDICAID | END 2022-07-31 10:08 | disposition critical access hospital (66) | LOC: EMS 10:07 | DX: Z04.6 Encounter for general psychiatric examination, requested by authority (principal); R62.7 Adult failure to thrive; R63.8 Other symptoms and signs concerning food and fluid intake; Z91.14 Patient's other noncompliance with medication regimen; Z72.89 Other problems related to lifestyle | CPT/HCPCS: A0425; A0429; A0999 ==

== ENCOUNTER 2022-07-31 10:49 | Emergency (ER) | payer MEDICAID ==
[2022-07-31] MEDS ORDERED: SODIUM CHLORIDE 0.9% 1,000 ML IV STA (11:03)
[2022-07-31 11:36] LABS: ALBUMIN 3.4 g/dL (3.2-5.5); ALBUMIN/GLOBULIN RATIO 1.1 (1.0-2.2); BILIRUBIN,TOTAL 5.3 mg/dL (0.2-1.0); CALCIUM 9.5 mg/dL (8.5-10.3); CREATININE 2.2 mg/dL (0.6-1.2); ETOH - ETHANOL 238.2 mg/dL; POTASSIUM 2.8 mmol/L (3.5-5.0); TOTAL PROTEIN 6.4 g/dL (6.7-8.2)
[2022-07-31 12:05] LABS: BASOPHILS % (AUTO) 0.6 %; EOSINOPHILS % (AUTO) 0.4 %; HCT - HEMATOCRIT 29.1 % (42.0-52.0); HGB - HEMOGLOBIN 11.6 g/dL (14.0-18.0); LYMPHOCYTES % (AUTO) 9.6 %; MEAN CORPUSCULAR HEMOGLOBIN 31.8 pg (27.0-31.0); MEAN CORPUSCULAR HGB CONC 39.9 g/dL (32.0-36.0); MEAN CORPUSCULAR VOLUME 79.7 fL (80.0-94.0); MEAN PLATELET VOLUME 11.6 fL (7.4-11.4); MONOCYTES % (AUTO) 16.5 %; NEUTROPHILS % (AUTO) 70.6 %; PLT - PLATELET COUNT 146 10^3/uL (130-450); RED BLOOD COUNT 3.65 10^6/uL (4.70-6.10); RED CELL DISTRIBUTION WIDTH 14.3 % (12.0-15.0); WHITE BLOOD COUNT 10.3 x10^3/uL (4.8-10.8)
[2022-07-31 12:32] LABS: DIFFERENTIAL COMMENT MANUAL DIFFERENTIAL; PLATELET ESTIMATE, MANUAL NORMAL (130-450,000) (NORMAL); PLATELET MORPHOLOGY NORMAL APPEARANCE (NORMAL); RBC MORPHOLOGY (MULTIPLE) 1+ TARGET CELLS (NORMAL)
[2022-07-31] MEDS ORDERED: THIAMINE INJ 100 MG, MAGNESIUM SULFATE 2 GM, MULTIVITAMIN 10 ML, FOLIC ACID INJ 1 MG in... IV ONE ×5 (13:03)
[2022-07-31] MEDS ORDERED: POTASSIUM CHLORIDE 20 MEQ TABLET PO STA (13:03)
--- NOTE | 2022-07-31 14:20 | ED Physician Documentation ---
History of Present Illness - Stated complaint Stated Complaint: ETOH - Chief complaint Chief Complaint: General - History obtained from History obtained from: Patient - Additonal information Additional information: The pt comes to the ED with CC of feeling generally unwell after drinking heavily for weeks. The pt is a long-standing alcoholic, but does state that he was sober for 3 months prior to this stretch of drinking. Pt states that life stressors and chronic pain cause him to drink. He denies any other medical problems, and states he is not interested in inpatient alcohol treatment. He has vomited a couple of times. No respiratory symptoms. No chest pain or abdominal pain. He states he can't really describe his sx, but thinks he is dehydrated. Review of Systems Ten Systems: 10 systems reviewed and negative Constitutional: reports: Reviewed and negative Eyes: reports: Reviewed and negative Ears: reports: Reviewed and negative Nose: reports: Reviewed and negative Throat: reports: Reviewed and negative Cardiac: reports: Reviewed and negative Respiratory: reports: Reviewed and negative GI: reports: Reviewed and negative : reports: Reviewed and negative Skin: reports: Reviewed and negative Musculoskeletal: reports: Reviewed and negative Neurologic: reports: Reviewed and negative Psychiatric: reports: Reviewed and negative Endocrine: reports: Reviewed and negative Immunocompromised: reports: Reviewed and negative PD PAST MEDICAL HISTORY - Past Surgical History Past Surgical History: Yes General: Splenectomy - Present Medications Home Medications: Ambulatory Orders Medication Instructions Recorded Confirmed chlordiazePOXIDE [Librium] 50 mg PO Q6H #30 cap 03/27/22 - Allergies Allergies/Adverse Reactions: Allergies Allergy/AdvReac Type Severity Reaction Status Date / Time No Known Drug Allergies Allergy Verified 07/31/22 11:09 - Social History Does the pt smoke?: Yes Smoking Status: Current every day smoker Does the pt drink ETOH?: Yes Does the pt have substance abuse?: No - Immunizations Immunizations are current?: Yes PD ED PE NORMAL - Vitals Vital signs reviewed: Yes - General General: Alert and oriented X 3, No acute distress, Well developed/nourished, Other (Minimally clinically intoxicated.) - HEENT HEENT: Atraumatic, PERRL, EOMI, Moist mucous membranes - Neck Neck: Supple, no meningeal sign - Cardiac Cardiac: RRR, No murmur, Strong equal pulses - Respiratory Respiratory: No respiratory distress, Clear bilaterally - Abdomen Abdomen: Soft, Non tender, Non distended - Derm Derm: Warm and dry, No rash, Other (mild jaundice) - Extremities Extremities: No deformity, No edema - Neuro Neuro: Alert and oriented X 3, senior research analyst 2-12 intact, Normal speech - Psych Psych: Normal mood, Normal affect Results - Vitals Vitals: Oxygen O2 Source Room air - Labs Labs: Laboratory Tests 07/31/22 07/31/22 11:10 11:10 WBC 10.3 RBC 3.65 L Hgb 11.6 L Hct 29.1 L MCV 79.7 L MCH 31.8 H MCHC 39.9 H RDW 14.3 Plt Count 146 MPV 11.6 H Neut # (Auto) ROD AND TUBE STRAIGHTENER Lymph # (Auto) ROD [employer] TUBE STRAIGHTENER [place] # (Auto) ROD [employer] TUBE STRAIGHTENER Eos # (Auto) ROD [employer] TUBE STRAIGHTENER Baso # (Auto) R[employer] TUBE STRAIGHTENER Absolute Nucleated RBC ROD [employer] TUBE STRAIGHTENER Band Neuts % (Manual) Not Reportable Abnorm Lymph % (Manual) Not Reportable Nucleated RBC % ROD [employer] TUBE STRAIGHTENER Neutrophils # (Manual) Not Reportable Lymphocytes # (Manual) Not Reportable Monocytes # (Manual) Not Reportable Eosinophils # (Manual) Not Reportable Basophils # (Manual) Not Reportable Differential Comment MANUAL DIFFERENTIAL Platelet Estimate NORMAL (130-450,000) Platelet Morphology NORMAL APPEARANCE RBC Morph Micro Appear 1+ TARGET CELLS Sodium 129 L Potassium 2.8 L Chloride 87 L Carbon Dioxide 21 Anion Gap 21.0 H BUN 63 H Creatinine 2.2 H Estimated GFR (MDRD) 32 L Glucose 126 H Calcium 9.5 Total Bilirubin 5.3 H AST 264 H ALT 177 H Alkaline Phosphatase 680 H Total Protein 6.4 L Albumin 3.4 Globulin 3.0 Albumin/Globulin Ratio 1.1 Lipase 37 Ethyl Alcohol 238.2 PD MEDICAL DECISION MAKING - ED course Complexity details: reviewed results, re-evaluated patient, considered differential, d/w patient ED course: The pt was given a liter of NS and a banana bag. He was worked up with labs, which showed elevated liver enzymes and an EtOH level of 238. I d/w pt that his liver is under a lot of stress from the drinking, and it is very important that he gets help with quitting. The pt is not ready to do this right now, he states. We have discussed the need for follow-up, and the usual indications for return. Departure - Departure Disposition: 01 Home, Self Care Clinical Impression: ETOH abuse Condition: Stable Instructions: ED Alcohol Abuse Comments: Your alcohol level, not surprisingly, is elevated. Your liver enzymes are also elevated, and it is very important that you get help with your drinking to avoid permanently damaging your health. At this point in time, we have offered to have you see social work and discuss going to detox, but you have declined this at this time. You have been treated with IV fluids as well as supplemental vitamins, but ultimately, you will need to decide whether you wish to pursue further intervention for your drinking. As far as medications, you will need to work with your primary doctor on medications for your back, as the combination of narcotic pain medication and the amount you have been drinking would be dangerous. Please call to make the next available appointment with your doctor. Discharge Date/Time: 07/31/22 14:51
[2022-07-31 14:51] VITALS: BP 146/77
== END 2022-07-31 14:51 | disposition home or self-care (01) ==
LOC: EDUNIT# → EDBD → ED 10:49
DX: F10.10 Alcohol abuse, uncomplicated (principal); Y90.7 Blood alcohol level of 200-239 mg/100 ml; E86.0 Dehydration; R17 Unspecified jaundice; F17.200 Nicotine dependence, unspecified, uncomplicated
CPT/HCPCS: 36415; 80053; 80320; 83690; 85025; 99283; 99284; A9270